=== PATIENT | male | born 1965 | race Caucasian/White ===

== ENCOUNTER 2023-10-05 18:54 | Outpatient (CLI) | payer MEDICAID, SELFPAY ==
[2023-10-05 18:44] LABS: Basophils # 0.2 K/mm3 (0-0.2); Basophils % 1.8 % (0.1-2.0); Eosinophils # 0.1 K/mm3 (0.0-0.4); Eosinophils % 1.3 % (0.1-12.0); Hematocrit 49.9 % (42.0-52.0); Hemoglobin 15.9 g/dL (14.1-18.0); Lymphocytes # 2.9 K/mm3 (0.7-4.5); Lymphocytes % 33.5 % (10-50); Mean Corpuscular HGB Conc 31.8 g/dL (31.8-35.4); Mean Corpuscular Hemoglobin 30.1 pg (27.0-31.2); Mean Corpuscular Volume 94.7 fl (80-94); Mean Platelet Volume 8.3 fl (7.4-10.4); Monocytes # 0.6 K/mm3 (0.1-1.0); Monocytes % 6.9 % (1.7-9.3); Neutrophils # 4.8 K/mm3 (1.8-7.8); Neutrophils % 56.4 % (37.0-80.0); Platelet Count 426 K/mm3 (142-424); Red Blood Count 5.27 M/mm3 (4.60-6.20); Red Cell Distribution Width 13.3 % (11.5-17.5); White Blood Count 8.6 K/mm3 (4.8-10.8)
[2023-10-05 18:46] LABS: Alanine Aminotransferase 19 U/L (12-78); Albumin Level 4.6 g/dl (3.5-5.0); Albumin/Globulin Ratio 1.5 (1.1-1.8); Alkaline Phosphatase 121 U/L (38-126); Anion Gap 12.4 mEq/L (5-15); Aspartate Amino Transferase 24 U/L (17-59); Bilirubin,Total 0.5 mg/dl (0.2-1.3); Blood Urea Nitrogen 9 mg/dl (9-20); Calcium 10.5 mg/dl (8.4-10.2); Carbon Dioxide 29 mmol/L (22.0-30.0); Chloride 103 mmol/L (98-107); Chol/HDL Ratio 4.4 (1-3.5); Cholesterol 231 mg/dl (140-200); Estimated Glomerular Filt Rate 138 ml/min (>60); GFR (African American) 167 ML/MIN (>60); Globulin 3.1 g/dL (1.3-3.2); Glucose 117 mg/dl (74-100); HDL Cholesterol 53 mg/dl (40-60); Potassium 4.4 mmoL/L (3.5-5.1); Sodium 140 mmol/L (136-145); Total Protein,Serum 7.7 g/dl (6.3-8.2); Triglycerides 100 mg/dl (30-150); VLDL Cholesterol 20 mg/dL (0-40)
[2023-10-05 18:58] LABS: Direct LDL Cholesterol 137.22 mg/dL (100-129)
[2023-10-05 19:18] LABS: Thyroid Stimulating Hormone 0.75 uIU/mL (0.465-4.68)
[2023-10-05 19:26] LABS: Hemoglobin A1C 5.9 % (4.0-6.0)
== END 2023-10-05 23:59 | disposition home or self-care (01) ==
LOC: LAB.DROPOF 18:54
PROVIDERS: PCP Family Medicine; Visit Provider Family Medicine
DX: F41.9 Anxiety disorder, unspecified (principal); Z79.899 Other long term (current) drug therapy; Z12.5 Encounter for screening for malignant neoplasm of prostate
CPT/HCPCS: 80053; 80061; 83036; 84443; 85025; G0103

== ENCOUNTER 2023-10-09 07:40 | Outpatient (CLI) | payer MEDICAID, SELFPAY ==
--- NOTE | 2023-10-09 07:46 | XR_ITS ---
FINAL REPORT CLINICAL HISTORY: R Foot Pain COMPARISON: None FINDINGS: RIGHT FOOT: Three views of the right foot were obtained. There is no acute fracture or dislocation. Mild degenerative changes present in the right foot. There is a pes planus deformity. There is no soft tissue abnormality. IMPRESSION: No acute bony abnormality. Mild degenerative change and pes planus deformity. Reviewed, Interpreted and Dictated by Sukhdeep Mattson III, MD Transcribed by Ailin Lester Authenticated and [facility]
== END 2023-10-09 23:59 ==
LOC: RAD 07:40
PROVIDERS: PCP Family Medicine; Visit Provider Nurse Practitioner Family
DX: M79.671 Pain in right foot (principal)
CPT/HCPCS: 73630

== ENCOUNTER 2024-10-10 08:10 | Outpatient (CLI) | payer MEDICAID, SELFPAY ==
[2024-10-10 18:21] LABS: Erythrocyte Sedimentation Rate 74 mm/hr (0-20)
[2024-10-10 19:06] LABS: C-Reactive Protein 73.3 mg/L (0-4)
--- OUTSIDE RECORDS SUMMARY | 2024-10-13 08:13 | XMS_ITS | Continuity of Care Document ---
Author Organization [place] - [facility], [facility] Address [address] [place] [address] Care Team Providers Care Medical Research Tech Name Role Phone ANNA HURTADO Primary Care Provider [phone] Assessment No assessment recorded. Plan of Treatment Reminders Order Date Submit Date Provider Last Modified By Organization Details Last Modified Time Details Appointments None record ed. Lab None record ed. Referral None record ed. Procedures None record ed. Surgeries None record ed. Imaging None record ed. Medication Orders None record ed. Patient TargetsNo targets recorded. Patient InstructionsNo instructions recorded. Reason for Referral None Reported. Medical Equipment None Reported. Medications Name Sig Start Date Stop Date Status Note LastModified by Organization Details LastModified Time alprazolam 1 mg tablet active Not Available Not Available Not Available hydrocodone 5 mg-acetamin ophen 325 mg tablet 09/09 completed Not Available Not Available Not Available bupivacaine HCl 0.5 % (5 mg/mL) injection solution Take 10 mg by injection route. 09/09 completed Not Available Not Available Not Available acetaminoph en 300 mg-codeine 30 mg tablet 09/09 completed Not Available Not Available Not Available sulfamethox azole 800 mg-trimetho prim 160 mg tablet 04/28 completed Not Available Not Available Not Available ketorolac 10 mg tablet active Not Available Not Available Not Available Kenalog 10 mg/mL suspension for injection Take 20 mg by injection route. 09/09 completed Not Available Not Available Not Available hydrocodone 7.5 mg-acetamin ophen 325 mg tablet 04/28 completed Not Available Not Available Not Available promethazin e 25 mg tablet active Not Available Not Available Not Available lorazepam 1 mg tablet active Not Available Not Available No t Available ibuprofen 600 mg tablet 04/28 completed Not Available Not Available Not Available oxycodone 5 mg tablet 04/28 completed Not Available Not Available Not Available amlodipine 10 mg-benazepr il 40 mg capsule active Not Available Not Available Not Available Vitals Date Recorded Body height Body mass index (BMI) Body weight Provider Name and Address Organization Details Last Updated DateTime 09/12/2024 170.18 cm 20.4 kg/m2 79010.01 g Chana Doran s [place] - [facility] - [place] & [place] 09/12/2024 08:53:16 Social History None recorded. Functional Status None recorded. Mental Status None recorded. Family History Nothing Reported. Medical History No medical history recorded. Immunizations Vaccine Type Date Status Note Provider Nam e and Address Organization Details Recorded Time Influenza, split virus, quadrivalent, preservative 5 completed Chana Melendez-Ezra null, [place] - [facility] & [place] 05/12/2024 14:27:13 Influenza, split virus, quadrivalent, preservative 5 completed Chana Melendez-Derickakis null, [place] [facility] & [place] 05/12/2024 14:27:13 Influenza, split virus, quadrivalent, preservative 7 completed Chana Melendez-Derickakis null, [place] [facility] & [place] 05/12/2024 14:27:13 COVID-19 vaccine, vector-nr, rS-Ad26, PF, 0.5 mL 1 completed Chana Flores null, [place] [facility] & [place] 05/12/2024 14:27:13 Td (adult), 2 Lf tetanus toxoid, preservative free, adsorbed 2 completed Chana Melendez-Ezra null, [place] [facility] & [place] 05/12/2024 14:27:13 Influenza, split virus, quadrivalent, PF 6 completed Chana Melendez-Ezra null, [place] [facility] & [place] 05/12/2024 14:27:13 Past Encounters Encounter ID Performer Location Encounter Start Date Encounter Closed Date Diagnosis/Indication Diagnosis SNOMED-CT Code Diagnosis ICD10 Code Diagnosis Note [id number] ALYSIA SOSA DO MV Deekenia [facility]ern[facility] [address] [place] [address] 09/12/2024 08:32:31 09/12/2024 09:57:43 Rotator cuff arthropathy of right shoulder [id number] 6774094 M12.811 Health Concerns Section Related Observation LastModified by Organization Detai ls LastModified Time None Recorded Concern Status LastModified by Organization Details LastModified Time None Recorded Payers Encounter Date Sequence Insurance Name Policy Number Policy Cardozo Covered Member ID Cardozo Member ID Guarantor Name 09/12/2024 1 [facility] (MEDICAID HMO) Arnaldo Baer [id number] Arnaldo Baer Notes Date Note Type Note Provider Name and Address Organization Details Recorded Time 09/12/2024 text/html 59 y/o male here today for follow up right shoulder. Patient would like to discuss surgery. 07.14.2024 RIGHT subacromial space injection- ineffective. E1AP 05/08/2024- MRI rt upper ext- Full thickness retracted tear of the supraspinatus tendon ALYSIA SOSA DO [address] [facility],[address], [place], [address], [facility] - [facility] - [place] & [place] 09/14/2024 10:28:16
--- OUTSIDE RECORDS SUMMARY | 2024-10-13 08:13 | XMS_ITS | Data Portability ---
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 Plan of Treatment Reminders Order Date Submit Date Provider Last Modified By Organization Details Last Modified Time Details Appointments None recorded. Lab None recorded. Referral None recorded. Procedures None recorded. Surgeries None recorded. Imaging XR, wrist 2023 0[email or web address] [facility], [address] [place] [address] [place], [address], 4 15:00:31 Medication Orders Kenalog 10 mg/mL suspension for injection 2024 025 [place] [address] [facility], [address] [place] [address], [address], 5 13:48:31 bupivacaine HCl 0.5 % (5 mg/mL) injection solution 2024 025 [email or web address] [address] [facility], [address] [place] [address], [address], 5 13:48:35 Patient TargetsNo targets recorded. Patient InstructionsNo instructions recorded. Reason for Referral None Reported. Results Created Date Observation Date Name Description Value Unit Range Abnormal Flag Note LastModifiedBy Organization Detail LastModifiedTime 06/06/20 24 06/06/2024 CREAT ININE W/GFR note SEE NOTE Order ing Provi mau: Pete Sosa DO Not Available [address], [place], [address], 06/06/2024 13:43:53 06/06/20 24 06/06/2024 CREAT ININE W/GFR creatinine 0.59 mg/dL 0.70-1 .30 low Not Available [address] [place], [address], 06/06/2024 13:43:53 06/06/20 24 06/06/2024 CREAT ININE W/GFR GFR (estimated) 112 mL/mi n >60 normal [IM CRISTINE NT]: The 2020 CKD-E PI equat ion is now the recom angelo d stand ney. This versi on does not inclu de race, as do the 2008 and 2011 CKD-E PI creat inine and creat inine -cyst atin C equat ions. Pleas e note that the eGFR now repor leon is gener ated by the new 2020 CKD-E PI equat ion, which decre ases the eGFR for black s by up to 10% and incre ases the eGFR for non-b lacks by up to 10% in roel rison to the old equat ion. To roel re a legac y eGFR to a curre nt value , a 2008 CKD-E PI calcu lator is easil y searc hable on the inter net. Calcu lated GFR: This calcu lated GFR is advoc ated by the Natio nal Kidne y Found ation to be used as an indic ator of Chron ic Kidne y Disea se (CKD) . 5 Stage s of Chron ic Kidne y Disea se. Stage 1 90 mL/mi n or more Healt hy kidne ys or Kidne y damag e with claudia l or high GFR detai ls Stage 2 60 to 89 mL/mi n Kidne y damag e and mild decre ase in GFR detai ls Stage 3 30 to 59 mL/mi n Moder ate decre ase in GFR detai ls Stage 4 15 to 29 mL/mi n Sever e decre ase in GFR detai ls Stage 5 Less than 15 mL/mi n On dialy sis or Kidne y failu re Patie nt's clini jm statu s must be consi dered for the care of your patie nt. Not Available [address] , [place], [address], 06/06/2024 13:43:53 06/06/20 24 06/06/2024 CREAT ININE W/GFR performing lab SEE NOTE ML - [facility] [address] [facility] [facility] [address] Not Available [address] , [place], [address], 06/06/2024 13:43:53 04/28/20 XR, shoul mau No observ ation record ed. CHRIS Orlando [address] , [place], [address], 04/28/2024 10:24:45 05/08/20 24 05/08/2024 - MRI up ex jnt w/w/o right [facility] Name: ERICK LEONARD DAPHNIE P [facility] Medica l [facility] Phys: Ian [place] [address] : 1965 Age: 58 Sex: M Acct: [id number] Loc: G.MRI PHONE #: [phone] Exam Date: 2023 Status : REG CLI FAX #: Rad# [id number] Unit# [id number] Admit Date: 2023 EXAMS: CPT CODE: [id number] MRI UP EX JNT W/W/O RIGHT [id number] CLINIC AL INFORM ATION: Right should er pain. Histor y of rotato r cuff repair 2 years ago. COMPAR STEVE: No compar steve availa ble. TECHNI QUE: Multie cho multip lanar pre-an d postco ntrast imagin g of the right should er was perfor med. FINDIN GS: Study detail degrad ed by jaquelin gonzales . Mild arthro sis AC joint. Mild latera l downsl ope acromi on. There is a full-t hickne ss retrac leon tear of the supras pinatu s tendon . Remain ing rotato r cuff elemen ts are intact . Events Specialist ior change s of the chsa l head with subcho ndral marrow edema in the ronda latera l aspect of the chas l head. Suspec t that the long head bicipi flavio tendon with slight ly tacked to the proxim al chas l diaphy sis. No signif icant joint effusi on. Labrum not well detail . No gross labral tears. Trace fluid subacr omial subdel toid bursa. IMPRES JOSELUIS: 1. Full-t hickne ss retrac leon tear of the supras pinatu s tendon This report is genera leon using voice recogn ition comput er softwa re. Inadve rtent errors may have occurr ed while dictat ing report . Common sense approa ch is apprec iated and do not hesita te to call for clarif icatio n when necess balbir. Electr onical ly Signed by Xiomara Del Valle on 2023 at 1326 Report ed and signed by: GARO Del Valle M.D. PAGE 1 Signed Report (JERRY NUED) [facility] Name: ERICK LEONARD P [address] [facility] [employer] Phys: Pi[place] [address] : 1965 Age: 58 Sex: M Acct: [id number] Loc: G.MRI PHONE #: Exam Date: 2023 Status : REG CLI FAX #: [phone] Rad# [id number] Unit# [id number] Admit Date: 2023 EXAMS: CPT CODE: [id number] MRI UP EX JNT W/W/O RIGHT [id number] CC: Pete Sosa DO; Oscar Vargas MD Dictat ed Date/T jessy: 2023 (1326) Techno logist : YVETTE CHOI Transc ribed Date/T jessy: 2023 (1326) Transc riptio nist: DR.HAR DENNIS vidales Signat ure Date/T jessy: 2023 (6331) Printe d Date/T jessy: 2023 (2835) BATCH NO: N/A PAGE 2 Signed Report CC'ed Logic: Orderi ng Provid er: IAN AHTFIELD Attend ing Provid er: IAN HATFIELD Referr ing Provid er: IAN HATFIELD Consul ting Provid er: GENESIS CASTILLO [email or web address] [address] , [place], [address], 05/08/2024 14:05:43 05/26/20 24 XR, wrist No observ ation record ed. CHRIS Orlando [address] , [place], [address], 05/26/2024 13:32:20 06/06/20 24 06/06/2024 - MRI up ex jnt w/w/o right [facility] Name: ERICK LEONARD [facility] Phys: [place] [address] : 1965 Age: 58 Sex: M Acct: [id number] Loc: G.MRI PHONE #: Exam Date: 2023 Status : REG CLI FAX #: Rad# [id number] Unit# [id number] Admit Date: 2023 EXAMS: CPT CODE: [id number] MRI UP EX JNT W/W/O RIGHT 08495 CLINIC AL INFORM ATION: Anteri or wrist mass and pain for 5 months COMPAR STEVE: No compar steve availa ble. TECHNI QUE: Multie cho multip lanar pre-an d post gadoli nium enhanc ed imagin g of the right wrist was perfor med. FINDIN GS: In the anteri or medial aspect of the wrist, abutti ng the ulnar aspect of the flexor tendon appara tus there is a multil oculat ed 2.7 x 1.5 x 4.0 cm lesion with surrou nding inflam mation which exhibi ts gadoli nium enhanc ement. No defini te solid mass. The ulnar artery passes along the anteri or extent of this proces s. The flexor tendon sheath itself has a normal appear ance. There is signif icant osseou s findin gs includ ing an old ununit ed ulnar styloi d avulsi on. There is diffus e edema within the head of the ulna with mild effusi on of the radial ulnar joint. The TFCC is not well deline ated and probab ly torn. There is multif ocal areas of marrow edema scatte red throug hout the carpus but most notabl y within the trique trum and pisifo rm. There is mild effusi on of the interc arpal spaces . IMPRES JOSELUIS: 1. 4 cm comple x cystic lesion ronda medial wrist as detail ed above most sugges tive of a comple x gangli on cyst/c yst cluste r. 2. Multif ocal osseou s abnorm alitie s as detail ed above favor that these are likely relate d to an underl melissa inflam matory arthri tis. 3. Suspec t TFCC tear. This report is genera leon using voice recogn ition comput er softwa re. Inadve rtent errors may have occurr ed while dictat ing report . Common sense approa ch is apprec iated and do not hesita te to call for ana guptao n when necess balbir. Electr onical ly Signed by Xiomara Del Valle on 2023 at 1626 Report ed and signed by: GARO Del Valle M.D. PAGE 1 Signed Report (JERRY NUED) [facility] Name: AISHAERICK P [address] [facility] [employer] Phys: [place] [address] : 1965 Age: 58 Sex: M Acct: [id number] Loc: G.MRI PHONE #: Exam Date: 2023 Status : REG CLI FAX #: [phone] Rad# [id number] Unit# [id number] Admit Date: 2023 EXAMS: CPT CODE: [id number] MRI UP EX JNT W/W/O RIGHT [id number] CC: Pete Sosa DO; Oscar Vargas MD Dictat ed Date/T jessy: 2023 (1625) Techno logist : MODESTOYRIS ACOSTA RT(R)( M)(CT) (MR) Transc ribed Date/T jessy: 2023 (1625) Transc riptio nist: DR.HAR DENNIS Levi onic Signat ure Date/T jessy: 2023 (1625) Printe d Date/T jessy: 2023 (1628) BATCH NO: N/A PAGE 2 Signed Report CC'ed Logic: Orderi ng Provid er: IAN HATFIELD Attend ing Provid er: IAN HATFIELD Referr ing Provid er: IAN HATFIELD Consul ting Provid er: GENESIS CASTILLO [email or web address] [address] [place], [address], 06/09/2024 07:51:44 Result Notes None recorded. Procedures Surgical History None recorded. Imaging Results Imaging Date Name Status LastModified by Organiz ation Details LastModified Time 04/28/2024 XR, shoulder completed CHRIS aBrbosa [address] [place], [address], 04/28/2024 10:24:45 05/08/2024 - MRI up ex jnt w/w/o right completed [email or web address] [address] [place], [address], 05/08/2024 14:05:43 05/26/2024 XR, wrist completed CHRIS Orlando [address] [place], [address], 05/26/2024 13:32:20 06/06/2024 - MRI up ex jnt w/w/o right completed [email or web address] [address] , [place], [address], 06/09/2024 07:51:44 Procedure Notes None recorded. Medical Equipment None Reported. Medications Name Sig [...] Not Available Vitals Date Recorded Body height Provider Name an d Address Organization Details Last Updated DateTime 05/26/2024 170.18 cm Emma Pineda [place] [facility] [place] 05/26/2024 13:15:12 Date Recorded Body height Provider Name an d Address Organization Details Last Updated DateTime 07/14/2024 170.18 cm Marisel Maries [place] - [facility] - Alejandro limashanae & [place] 07/14/2024 08:24:24 Date Recorded Body height Body mass index (BMI) Body weight Provider Name and Address Organization Details Last Updated DateTime 09/12/2024 170.18 cm 20.4 kg/m2 45196.01 g Chana Doran s [facility] - [facility] - [place] & [place] 09/12/2024 08:53:16 Social History None recorded. Functional Status None recorded. Mental Status None recorded. Family History Nothing Reported. Medical History No medical history recorded. Immunizations Vaccine Type Date Status Note Provider Nam e and Address Organization Details Recorded Time Influenza, split virus, quadrivalent, preservative 5 completed Chana Melendez-Derickakis null, [facility] - [facility] - [place] & [place] 05/12/2024 14:27:13 Influenza, split virus, quadrivalent, preservative 5 completed Chana Melendez-Pitakis null, [facility] - [facility] - [place] & [place] 05/12/2024 14:27:13 Influenza, split virus, quadrivalent, preservative 7 completed Chana Melendez-Derickakis null, [facility] - [facility] - [place] & [place] 05/12/2024 14:27:13 COVID-19 vaccine, vector-nr, rS-Ad26, PF, 0.5 mL 1 completed Chana Melendez-Derickakis null, [facility] - [facility] - [place] & [place] 05/12/2024 14:27:13 Td (adult), 2 Lf tetanus toxoid, preservative free, adsorbed 2 completed Chana Melendez-Derickakis null, [facility] - [facility] - [place] & [place] 05/12/2024 14:27:13 Influenza, split virus, quadrivalent, PF 6 completed Chana Melendez-Derickakis null, [facility] - [facility] - [place] & [place] 05/12/2024 14:27:13 Past Encounters Encounter ID Performer Location Encounter Start Date Encounter Closed Date Diagnosis/Indication Diagnosis SNOMED-CT Code Diagnosis ICD10 Code Diagnosis Note [id number] DO ANGELITA TA [address] [address] 04/28/2024 09:33:40 04/28/2024 10:53:05 Pain of right shoulder joint [id number] 9451351 M25.511 Lesion of bone of right shoulder 9038147119 4077971 M89.8X1 [id number] PETE SOSA DO [facility] [address] [place] [address] 05/12/2024 14:00:16 05/12/2024 14:35:43 Full thickness rotator cuff tear 431303140 M75.926 [id number] [facility]E [facility] [address] [place], [place] [address] 05/26/2024 13:07:24 05/26/2024 13:43:54 Pain of right wrist 7728530814 82666 M25.582 [id number] PETE SOSA DO [facility] [address] [place], [place] [address] 06/09/2024 13:41:29 06/09/2024 14:17:50 Ganglion cyst of right hand 1136275237 64076 M67.192 [id number] PETE [facility]OSA DO [facility] [address] [place], [place] [address] 07/14/2024 08:18:52 07/14/2024 08:43:54 Pain of right shoulder joint 1192314697 9390549 M25.511 Ganglion c yst of right hand 9088797572 86636 M67.889 [id number] PETE SOSA DO [facility] [address] [place] [address] 09/12/2024 08:32:31 09/12/2024 09:57:43 Rotator cuff arthropathy of right shoulder 1748758033 3710692 M12.811 Health Concerns Section Related Observation LastModified by Organization Detai ls LastModified Time None Recorded Concern Status LastModified by Organization Details LastModified Time None Recorded Advance Directives Directive None Recorded Payers Encounter Date Sequence Insurance Name Policy Number Policy Cardozo Covered Member ID Cardozo Member ID Guarantor Name 05/12/2024 1 [employer] [place] (MEDICAID HMO) Arnaldo Leonard [id number] Arnaldo Leonard 05/26/2024 1 [employer] [place] Arnaldo Leonard [id number] Arnaldo Leonard 06/09/2024 1 [employer] [place] ([place] Arnaldo Weiss Hay [id number] Arnaldo P Hay 07/14/2024 1 [employer] [place] Arnaldo Weiss Hay [id number] Arnaldo Weiss Hay 09/12/2024 1 [employer] [place] ([place] Arnaldo Leonard [id number] Arnaldo Leonard Notes Date Note Type Note Provider Name and Address Organization Details Recorded Time 05/12/2024 text/html 58 y/o male here today for MRI results and follow up right shoulder injection given on 04.28.24. Patient states the injection helped significantly. E2AP 05/08/2024- MRI rt upper ext- Full thickness retracted tear of the supraspinatus tendon PETE SOSA DO [address], [place], [address], [facility] - [facility] - [place] & [place] 05/14/2024 07:55:06 05/26/2024 text/html Pt is here for a possible ganglion cyst on the rt volar medial wrist. He reports on set of about one month-E2SF PETE SOSA DO [address], [place], [address], [place] - [facility] - [place] & [place] 05/26/2024 14:28:52 06/09/2024 text/html 58 y/o male here today MRI results. Patient reports that as long as he doesn't hit knee on anything pain is manageable. Not taking anything for pain. E1AP MRI RIGHT KNEE WITH AND WITHOUT [facility] .24:1. 4 cm complex cystic lesion anteromedial wrist as detailed above most suggestive of a complex ganglion cyst/cyst cluster.2. Multifocal osseous abnormalities as detailed above favor that these are likely related to an underlying inflammatory arthritis.3. Suspect TFCC tear. PETE SOSA DO [address], [place], [address], [place] - [facility] - [place] & [place] 06/09/2024 17:01:42 07/14/2024 text/html Patient is here today for 2 week post op Right volar ganglion cyst excision. There is no redness or drainage coming from the incision site. E2 JS PETE SOSA, [address] [place] [address],[address], [place], [address], [place] - [facility] [place] 07/14/2024 08:42:11 09/12/2024 text/html 59 y/o male here today for follow up right shoulder. Patient would like to discuss surgery. 07.14.2024 RIGHT subacromial space injection- ineffective. E1AP 05/08/2024- MRI rt upper ext- Full thickness retracted tear of the supraspinatus tendon PETE DO IAN [address] [place] [address],[address], [place], [address], [place] [facility] - [place] 09/14/2024 10:28:16
[2024-10-13 16:28] LABS: RA Latex Turbid. <10.0 IU/mL (<14.0)
== END 2024-10-10 23:59 | disposition home or self-care (01) ==
LOC: LAB.DROPOF 10-13 08:11
PROVIDERS: PCP Family Medicine; Visit Provider Family Medicine
DX: Z13.828 Encounter for screening for other musculoskeletal disorder (principal); M79.642 Pain in left hand
CPT/HCPCS: 85651; 86140; 86431